=== PATIENT | male | born 1990 | race Caucasian/White ===

== ENCOUNTER 2018-02-03 19:48 | Emergency (ER) | payer OTHER ==
[2018-02-03] MEDS ORDERED: DIPH/PERTUSS(ACELL)/TETANUS VAC/PF 0.5 ML SYR (>=10YO) IM ONE (21:33)
[2018-02-03] MEDS ORDERED: LIDOCAINE 1%/EPINEPHRINE INJ 20 ML VIAL INJ ONE (21:33)
[2018-02-03] MEDS ORDERED: AMOXICILLIN TR/POT CLAVULANATE 500-125 MG TAB PO ONE (22:46)
--- NOTE | 2018-02-03 22:50 | ER Document Report ---
ED General - General Chief Complaint: Dog Bite Stated Complaint: DOG BITE Time Seen by Provider: 02/03/18 21:06 TRAVEL OUTSIDE OF THE [place] IN LAST 30 DAYS: No - HPI Notes: 27-year-old male presents with a dog bite and hand laceration. He states his 's dog, a pit mix, bit her hand tonight. He tried to pry the dog's mouth off of her hand with his right hand. He states the dog would not let go so he stabbed the dog with his left hand. He incidentally cut his left first webspace with the knife. He has a superficial bite wound to his right third finger. He does not believe the knife went through the dog and then lacerated his hand. He used a clean kitchen knife. Last tetanus was over 5 years ago. Past Medical History - Social History Smoking Status: Current Every Day Smoker Chew tobacco use (# tins/day): No Frequency of alcohol use: Rare Drug Abuse: None Family History: Reviewed & Not Pertinent Patient has suicidal ideation: No Patient has homicidal ideation: No Renal/ Medical History: Denies: Hx Peritoneal Dialysis Review of Systems - Review of Systems Notes: Constitutional: Negative for fever. Cardiovascular: Negative for chest pain. Respiratory: Negative for shortness of breath. Gastrointestinal: Negative for vomiting Musculoskeletal: Negative for back pain. Skin: Positive for laceration and bite wound Neurological: Negative for weakness or numbness. 10 point ROS negative except as marked above and in HPI. Physical Exam - Vital signs Vitals: Temp Pulse Resp BP Pulse Ox 98.5 F 114 H 14 153/90 H 97 02/03/18 20:06 02/03/18 20:06 02/03/18 20:06 02/03/18 20:06 02/03/18 20:06 - Notes Notes: PHYSICAL EXAMINATION: GENERAL: Well-appearing, well-nourished and in no acute distress. HEAD: Atraumatic, normocephalic. EYES: sclera anicteric, conjunctiva are normal. ENT: Moist mucous membranes. NECK: Normal range of motion LUNGS: Normal work of breathing HEART: 2+ radial pulses bilaterally EXTREMITIES: no pitting or edema. No cyanosis. NEUROLOGICAL: No focal neurological deficits. Moves all extremities spontaneously and on command. PSYCH: Normal mood, normal affect. SKIN: Approximate 4 cm laceration to the thenar webspace of left hand with active oozing of blood. Superficial abrasion from bite wound to right third finger middle phalanx palmar and dorsal aspect. Course - Re-evaluation Re-evalutation: 02/03/18 23:16 Wounds cleaned. Thenar wound sutured without difficulty. Given strict return precautions. Placed on Augmentin for bite wound. Tetanus updated. At this time will discharge with return precautions and follow-up recommendations. Verbal discharge instructions given a the bedside and opportunity for questions given. Medication warnings reviewed. Patient is in agreement with this plan and has verbalized understanding of return precautions and the need for primary care follow-up in the next 24-72 hours. Voice dictation software was used. Chart was reviewed, but errors may exist. - Vital Signs Vital signs: Temp Pulse Resp BP Pulse Ox 98.5 F 114 H 14 153/90 H 97 02/03/18 20:06 02/03/18 20:06 02/03/18 20:06 02/03/18 20:06 02/03/18 20:06 Procedures - Laceration/Wound Repair Left Upper Hand Wound length (cm): 3 Wound's Depth, Shape: Linear Laceration pre-procedure: Shur-Clens applied Anesthetic type: 1% Lidocaine w/epi Volume Anesthetic (mLs): 5 Wound explored: Clean Irrigated w/ Saline (mLs): 30 Wound Debrided: Minimal Wound Repaired With: Sutures Suture Size/Type: 4:0, Prolene Number of Sutures: 5 Layer Closure?: No Post-procedure wound care: Sterile dressing applied Post-procedure NV exam normal: Yes Complications: No Discharge - Discharge Clinical Impression: Dog bite Qualifiers: Encounter type: initial encounter Qualified Code(s): W54.0XXA - Bitten by dog, initial encounter Hand laceration Qualifiers: Encounter type: initial encounter Foreign body presence: without foreign body Laterality: left Qualified Code(s): S61.412A - Laceration without foreign body of left hand, initial encounter Condition: Stable Disposition: HOME, SELF-CARE Instructions: Prophylactic Antibiotic ([facility]), Laceration Care ([facility]), Tetanus Immunization Given ([facility]) Additional Instructions: Return for suture removal in 7-10 days. Apply thin layer of antibiotic ointment for the next few days, then thin layer of Vaseline and keep covered. Return for any signs of wound infection. Take all antibiotics. Take Motrin or Tylenol as needed for pain. Keep clean and dry. Prescriptions: Amox Tr/Potassium Clavulanate [Augmentin 875-125 Tablet] 1 tab PO BID 10 Days tablet Forms: Elevated Blood Pressure Referrals: YOSEF CIFUENTES MD [ACTIVE STAFF] - Follow up in 1 week
[2018-02-03 23:44] VITALS: BP 125/80
== END 2018-02-03 23:41 | disposition home or self-care (01) ==
LOC: ER 19:48
DX: S61.412A Laceration without foreign body of left hand, initial encounter (principal); W26.0XXA Contact with knife, initial encounter; Y93.89 Activity, other specified; S60.472A Other superficial bite of right middle finger, initial encounter; W54.0XXA Bitten by dog, initial encounter; F17.200 Nicotine dependence, unspecified, uncomplicated; Z23 Encounter for immunization
CPT/HCPCS: 99283; 90471; 90715; 12002; J3490